=== PATIENT | female | born 1955 | race Caucasian/White ===

== ENCOUNTER → 2020-08-13 | Day surgery (SDC) | payer MEDICARE, BC ==
[~2020-08-13] MED LIST: Glycopyrrolate 0.2 MG/ML SDV ONE; Ketamine 200 MG/20 ML MDV ONE; Propofol 200 MG/20 ML SDV ONE; fentaNYL 100 MCG/2 ML SDV ONE
[2020-08-13] MEDS: Lactated Ringers 1,000 ML IV SCH (08:10)
[2020-08-13 10:18] VITALS: BP 131/72; PULSE 51
--- NOTE | 2020-08-13 11:48 | OR ---
DATE OF OPERATION: 08/13/2020 PREOPERATIVE DIAGNOSIS: SCREENING COLONOSCOPY. POSTOPERATIVE DIAGNOSIS: SCREENING COLONOSCOPY. SURGEON: Beau Antonio MD PROCEDURE: NORMAL FULL-LENGTH COLONOSCOPY. ANESTHESIA: MAC. COMPLICATIONS: None. SPECIMEN: None. FINDINGS: Normal full-length colonoscopy. RECOMMENDATIONS: Followup colonoscopy in 10 years. INDICATIONS: The patient is overdue for a screening colonoscopy as it has been [address] sent her for procedure. DESCRIPTION OF PROCEDURE: The patient was prepped and draped, placed in the left lateral decubitus position. A lubricated Olympus colonoscope was inserted and with relative ease advanced to the cecum. The patient was pretty tortuous, but we were able to get into the cecal pouch, visualize the ileocecal valve and appendiceal orifice. The bowel prep was excellent. Upon withdrawal, throughout the entire length of the colon, I could find no signs of any polyps, masses, ulceration, or bleeding sites. No vascular abnormalities or signs of colitis. There were no diverticula. The rectal vault was benign. Retroflexion showed large perianal skin tags. No other abnormalities visualized. Air suctioned and scope removed without complication. NAKIA/ABELARDO /[id number]
== END ==
LOC: CC.SDS 07:58
PROVIDERS: ATTEND Family Medicine
DX: Z12.11 Encounter for screening for malignant neoplasm of colon (principal); K64.4 Residual hemorrhoidal skin tags; F32.9 Major depressive disorder, single episode, unspecified; Z85.42 Personal history of malignant neoplasm of other parts of uterus; Z87.42 Personal history of other diseases of the female genital tract; Z79.899 Other long term (current) drug therapy; Z98.890 Other specified postprocedural states
CPT/HCPCS: G0121; J2704; J3010; J3490; J7120; 00812

== ENCOUNTER 2023-05-26 11:16 | Emergency (ER) | payer MEDICARE, BC ==
[2023-05-26 11:19] VITALS: BP 129/86; PULSE 72
== END 2023-05-26 11:57 | disposition home or self-care (01) ==
LOC: CC.ED 11:16
DX: J02.9 Acute pharyngitis, unspecified (principal); Z90.710 Acquired absence of both cervix and uterus; Z20.822 Contact with and (suspected) exposure to COVID-19
CPT/HCPCS: 87430; 87804; 99283; U0002

== ENCOUNTER 2024-01-04 14:58 | Emergency (ER) | payer MEDICARE, BC ==
[2024-01-04] MEDS: Diphtheria,Pertussis(Acell),Tetanus Vaccine 0.5 ML Syringe IM ONE (15:45)
[2024-01-04 15:52] VITALS: BP 165/91; PULSE 61
[2024-01-04] MEDS: Acetaminophen 500 MG Tab PO ONE (16:16)
== END 2024-01-04 16:35 | disposition home or self-care (01) ==
LOC: CC.ED 14:58
DX: S01.111A Laceration without foreign body of right eyelid and periocular area, initial encounter (principal); S01.21XA Laceration without foreign body of nose, initial encounter; Z79.899 Other long term (current) drug therapy; Z90.710 Acquired absence of both cervix and uterus; W01.198A Fall on same level from slipping, tripping and stumbling with subsequent striking against other object, initial encounter; Y93.89 Activity, other specified
CPT/HCPCS: 70450; 70486; 90471; 90715; 99284-25; A9270-GY

== ENCOUNTER 2024-07-28 12:12 | Inpatient (IN) | payer MEDICARE, BC ==
[2024-07-28 12:42] LABS: BASOPHILS ABSOLUTE AUTO 0.04 10^3/uL (0.00-0.50); BASOPHILS PERCENT AUTO 0.5 % (0-1); EOSINOPHILS ABSOLUTE AUTO 0.31 10^3/uL (0.00-1.50); EOSINOPHILS PERCENT AUTO 3.8 % (0-6); HEMATOCRIT 43.6 % (37.0-47.0); HEMOGLOBIN 14.7 g/dL (12.0-16.0); IMMATURE GRAN ABSOLUTE AUTO 0.01 10^3/uL (0.00-0.49); IMMATURE GRAN PERCENT AUTO 0.1 % (0.0-4.9); LYMPHOCYTES ABSOLUTE AUTO 1.46 10^3/uL (0.60-5.00); LYMPHOCYTES PERCENT AUTO 17.8 % (24-44); MEAN CORPUSCULAR HEMOGLOBIN 28.9 pg (27.0-32.0); MEAN CORPUSCULAR HGB CONC 33.7 g/dL (32.0-36.0); MEAN CORPUSCULAR VOLUME 85.8 fL (83.0-97.0); MONOCYTES ABSOLUTE AUTO 0.63 10^3/uL (0.00-1.50); MONOCYTES PERCENT AUTO 7.7 % (0-10); NEUTROPHILS ABSOLUTE AUTO 5.75 x10^3/uL (1.80-8.00); NEUTROPHILS PERCENT AUTO 70.1 % (41-71); PLATELET COUNT,PLT 215 10^3/uL (150-400); RED BLOOD CELL COUNT 5.08 x10^6/uL (4.00-5.50); WHITE BLOOD CELL COUNT,WBC 8.2 10^3/uL (4.0-11.0)
[2024-07-28] MEDS: Diltiazem 25 MG/5 ML SDV IVPUSH ONE (12:54)
[2024-07-28 12:59] LABS: ALBUMIN 3.7 g/dL (3.4-5.0); CALCIUM 9.2 mg/dL (8.4-10.1); CREATININE 1.2 mg/dL (0.6-1.0); EST CRCL DRUG DOSING (CG) 34.01 mL/min; MAGNESIUM 1.7 mg/dL (1.8-2.4); POTASSIUM,K 3.3 mEq/L (3.5-5.0); PROTEIN TOTAL,TP 7.3 g/dL (6.4-8.2)
[2024-07-28] MEDS: Potassium Chloride 20 MEQ Tab.ER PO ONE (13:17)
[2024-07-28] MEDS: Sodium Chloride 0.9% 500 ML IV SCH (13:17)
[2024-07-28] MEDS: Apixaban 5 MG Tab PO SCH (13:23)
[2024-07-28] MEDS ORDERED: Polyethylene Glycol 3350 Powder 17 GM Packet PO PRN (13:49)
[2024-07-28] MEDS ORDERED: Ondansetron 4 MG Tab.DIS PO PRN (13:49)
[2024-07-28] MEDS ORDERED: Acetaminophen 325 MG Tab PO PRN (13:49)
[2024-07-28] MEDS ORDERED: Docusate Sodium 100 MG Cap PO PRN (13:49)
[2024-07-28] MEDS: Diltiazem 180 MG Cap.CD PO ONE (14:51)
[2024-07-29 08:01] LABS: BASOPHILS ABSOLUTE AUTO 0.03 10^3/uL (0.00-0.50); BASOPHILS PERCENT AUTO 0.5 % (0-1); EOSINOPHILS ABSOLUTE AUTO 0.24 10^3/uL (0.00-1.50); EOSINOPHILS PERCENT AUTO 4.3 % (0-6); HEMATOCRIT 42.9 % (37.0-47.0); HEMOGLOBIN 14.6 g/dL (12.0-16.0); IMMATURE GRAN ABSOLUTE AUTO 0.01 10^3/uL (0.00-0.49); IMMATURE GRAN PERCENT AUTO 0.2 % (0.0-4.9); LYMPHOCYTES ABSOLUTE AUTO 1.22 10^3/uL (0.60-5.00); LYMPHOCYTES PERCENT AUTO 22.1 % (24-44); MEAN CORPUSCULAR HEMOGLOBIN 29.2 pg (27.0-32.0); MEAN CORPUSCULAR VOLUME 85.8 fL (83.0-97.0); MONOCYTES ABSOLUTE AUTO 0.49 10^3/uL (0.00-1.50); MONOCYTES PERCENT AUTO 8.9 % (0-10); NEUTROPHILS ABSOLUTE AUTO 3.53 x10^3/uL (1.80-8.00); PLATELET COUNT,PLT 212 10^3/uL (150-400); WHITE BLOOD CELL COUNT,WBC 5.5 10^3/uL (4.0-11.0)
[2024-07-29 08:08] LABS: CALCIUM 8.8 mg/dL (8.4-10.1); CREATININE 0.9 mg/dL (0.6-1.0); EST CRCL DRUG DOSING (CG) 45.34 mL/min; MAGNESIUM 1.8 mg/dL (1.8-2.4); POTASSIUM,K 3.6 mEq/L (3.5-5.0)
[2024-07-29] MEDS: Spironolactone 25 MG Tab PO SCH (08:57)
[2024-07-29] MEDS: Calcium Carbonate/Vitamin D3 1250 MG-5 MCG Tab PO SCH (08:57)
[2024-07-29] MEDS: Diltiazem 180 MG Cap.CD PO SCH (08:58)
[2024-07-29] MEDS: Zinc Sulfate 220 MG Cap PO SCH (08:58)
[2024-07-29] MEDS: Empagliflozin 10 MG Tab PO SCH (08:58)
[2024-07-29] MEDS: Cholecalciferol (Vitamin D3) 25 MCG Tab PO SCH (08:58)
[2024-07-29] MEDS: Meloxicam 7.5 MG Tab PO SCH (08:58)
[2024-07-29] MEDS: Diltiazem 25 MG/5 ML SDV IVPUSH ONE (09:36)
[2024-07-29] MEDS: Diltiazem 120 MG Cap.CD PO ONE (12:53)
[2024-07-29] MEDS: Diltiazem 100 MG in Sodium Chloride 0.9% 100 ML IV SCH (12:54)
[2024-07-29] MEDS: Venlafaxine 75 MG Cap.ER PO SCH (19:31)
[2024-07-29] MEDS: SACUBITRIL PO SCH (19:34)
[2024-07-29] MEDS: VALSARTAN PO SCH (19:34)
[2024-07-30 07:37] LABS: BASOPHILS ABSOLUTE AUTO 0.03 10^3/uL (0.00-0.50); BASOPHILS PERCENT AUTO 0.6 % (0-1); EOSINOPHILS ABSOLUTE AUTO 0.34 10^3/uL (0.00-1.50); EOSINOPHILS PERCENT AUTO 6.3 % (0-6); HEMATOCRIT 42.6 % (37.0-47.0); HEMOGLOBIN 14.4 g/dL (12.0-16.0); IMMATURE GRAN ABSOLUTE AUTO 0.01 10^3/uL (0.00-0.49); IMMATURE GRAN PERCENT AUTO 0.2 % (0.0-4.9); LYMPHOCYTES ABSOLUTE AUTO 1.36 10^3/uL (0.60-5.00); MEAN CORPUSCULAR HGB CONC 33.8 g/dL (32.0-36.0); MEAN CORPUSCULAR VOLUME 85.7 fL (83.0-97.0); MONOCYTES ABSOLUTE AUTO 0.51 10^3/uL (0.00-1.50); MONOCYTES PERCENT AUTO 9.4 % (0-10); NEUTROPHILS ABSOLUTE AUTO 3.19 x10^3/uL (1.80-8.00); NEUTROPHILS PERCENT AUTO 58.5 % (41-71); PLATELET COUNT,PLT 220 10^3/uL (150-400); RED BLOOD CELL COUNT 4.97 x10^6/uL (4.00-5.50); WHITE BLOOD CELL COUNT,WBC 5.4 10^3/uL (4.0-11.0)
[2024-07-30] MEDS: Diltiazem 120 MG Cap.CD PO SCH (07:41)
[2024-07-30 08:02] LABS: CALCIUM 8.6 mg/dL (8.4-10.1); CREATININE 0.8 mg/dL (0.6-1.0); EST CRCL DRUG DOSING (CG) 51.01 mL/min; MAGNESIUM 1.8 mg/dL (1.8-2.4); POTASSIUM,K 3.6 mEq/L (3.5-5.0)
[2024-07-30 12:58] VITALS: BP 131/81; PULSE 74
== END 2024-07-30 13:00 | disposition home or self-care (01) | DRG 309 ==
LOC: CC.ED 12:12 → CC.MS 13:15 → UNDOADMIN 13:18
PROVIDERS: ADMIT Nurse Practitioner; ATTEND Nurse Practitioner
DX: I48.91 Unspecified atrial fibrillation (principal); N17.9 Acute kidney failure, unspecified; E87.6 Hypokalemia; F32.A Depression, unspecified; Z98.890 Other specified postprocedural states; Z79.899 Other long term (current) drug therapy; Z90.710 Acquired absence of both cervix and uterus
CPT/HCPCS: 36415; 71045; 80048; 80053; 83735; 84484; 85025; 85730; 93005; 93010; 96374; 99223; 99233; 99238; 99285-25; A9270-GY; J3490; J7040

== ENCOUNTER 2024-12-17 13:39 | Emergency (ER) | payer MEDICARE, BC ==
[2024-12-17 14:09] VITALS: PULSE 101
[2024-12-17 15:01] VITALS: BP 134/95
== END 2024-12-17 15:00 | disposition home or self-care (01) ==
LOC: CC.ED 13:39
DX: R04.0 Epistaxis (principal); I11.0 Hypertensive heart disease with heart failure; I50.9 Heart failure, unspecified; E78.00 Pure hypercholesterolemia, unspecified; Z79.899 Other long term (current) drug therapy; Z79.01 Long term (current) use of anticoagulants
CPT/HCPCS: 30901; 99283; 99283-25

== ENCOUNTER 2025-01-30 20:53 | Emergency (ER) | payer MEDICARE, BC ==
[2025-01-30] MEDS: Alum Hydrox/Mag Hydrox/Simeth 30 ML, Lidocaine 2% 15 ML PO ONE (21:20)
[2025-01-30 21:23] LABS: BASOPHILS ABSOLUTE AUTO 0.01 10^3/uL (0.00-0.50); BASOPHILS PERCENT AUTO 0.1 % (0-1); EOSINOPHILS ABSOLUTE AUTO 0.02 10^3/uL (0.00-1.50); EOSINOPHILS PERCENT AUTO 0.2 % (0-6); IMMATURE GRAN ABSOLUTE AUTO 0.00 10^3/uL (0.00-0.49); IMMATURE GRAN PERCENT AUTO 0.0 % (0.0-4.9); LYMPHOCYTES ABSOLUTE AUTO 1.04 10^3/uL (0.60-5.00); LYMPHOCYTES PERCENT AUTO 11.7 % (24-44); MONOCYTES ABSOLUTE AUTO 0.54 10^3/uL (0.00-1.50); MONOCYTES PERCENT AUTO 6.1 % (0-10); NEUTROPHILS ABSOLUTE AUTO 7.27 x10^3/uL (1.80-8.00); NEUTROPHILS PERCENT AUTO 81.9 % (41-71); PLATELET COUNT,PLT 165 10^3/uL (150-400); RED BLOOD CELL COUNT 4.14 x10^6/uL (4.00-5.50); WHITE BLOOD CELL COUNT,WBC 8.9 10^3/uL (4.0-11.0)
[2025-01-30 21:43] LABS: ALANINE AMINOTRANSFERASE,ALT 106.0 U/L (12-78); ASPARTATE AMNIOTRANSFERASE,AST 93.0 U/L (15-37); BILIRUBIN TOTAL 0.9 mg/dL (0.0-1.0); BLOOD UREA NITROGEN,BUN 23.0 mg/dL (7-18); CARBON DIOXIDE,CO2 30.0 mmol/L (21-32); CHLORIDE,CL 99.0 mEq/L (98-106); CREATININE 0.9 mg/dL (0.6-1.0); EST CRCL DRUG DOSING (CG) 47.43 mL/min; GLUCOSE RANDOM 127.0 mg/dL (75-99); POTASSIUM,K 3.3 mEq/L (3.5-5.0); PROTEIN TOTAL,TP 7.3 g/dL (6.4-8.2); SODIUM,NA 138.0 mEq/L (136-145)
[2025-01-30 21:44] LABS: ESTIMATED GFR 68.0 mL/min (>=60)
[2025-01-30 21:48] LABS: APPEARANCE,URINE CLEAR (CLEAR); GLUCOSE,URINE NEGATIVE (NEGATIVE); OCCULT BLOOD,URINE LARGE (NEGATIVE)
[2025-01-30 21:50] LABS: EPITHELIAL CELLS,URINE RARE /HPF (NOT SEEN)
[2025-01-30] MEDS: Iopamidol 755 Mg/ML 100 ML Bottle IVPUSH ONE (22:29)
[2025-01-30] MEDS: Ondansetron 4 MG/2 ML SDV IVPUSH ONE (23:10)
[2025-01-30] MEDS: fentaNYL 50 MCG/ML SDV IVPUSH ONE (23:11)
[2025-01-31 03:03] VITALS: BP 121/72; PULSE 52
== END 2025-01-31 02:45 ==
LOC: CC.ED 20:53
DX: K80.00 Calculus of gallbladder with acute cholecystitis without obstruction (principal); I11.0 Hypertensive heart disease with heart failure; I50.9 Heart failure, unspecified; E78.00 Pure hypercholesterolemia, unspecified; Z79.01 Long term (current) use of anticoagulants; Z91.048 Other nonmedicinal substance allergy status; Z79.899 Other long term (current) drug therapy
CPT/HCPCS: 36415; 74177; 80053; 81001; 83690; 85025; 86140; 96361; 96365; 96375; 96376; 99285; A9270; J2405; J2543; J3010; J7030; Q9967; J1171

== ENCOUNTER 2025-02-12 11:00 | Emergency (ER) | payer MEDICARE, BC ==
[2025-02-12 11:26] VITALS: BP 149/86; PULSE 81
== END 2025-02-12 12:59 | disposition home or self-care (01) ==
LOC: CC.ED 11:00
DX: R04.0 Epistaxis (principal); I11.0 Hypertensive heart disease with heart failure; I50.9 Heart failure, unspecified; I43 Cardiomyopathy in diseases classified elsewhere; Z93.3 Colostomy status; Z90.710 Acquired absence of both cervix and uterus; Z91.09 Other allergy status, other than to drugs and biological substances; Z79.01 Long term (current) use of anticoagulants; Z79.899 Other long term (current) drug therapy
CPT/HCPCS: 30901; 99283-25